=== PATIENT | female | born 2000 | race Native Hawaiian/Other Pacific Islander ===

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

== ENCOUNTER 2018-05-31 11:51 | Emergency (ER) | payer BC ==
[2018-05-31 12:02] VITALS: BP 131/90; PULSE 86; RESP 18; TEMP 97.8
--- NOTE | 2018-05-31 12:58 | ED ---
General Adult HPI - General Chief complaint: Skin/Abscess/Foreign Body Stated complaint: skin problem on face Time Seen by Provider: 05/31/18 12:23 Source: patient, RN notes reviewed Mode of arrival: ambulatory Limitations: no limitations - History of Present Illness Initial comments: Patient is a pleasant 17-year-old female presenting to the emergency department with concern for problems with face. Patient states 1 week ago she slipped getting out of the shower and struck her face on a sink. No loss of consciousness. No neurological problems. Patient did have a cut and her friend 's mother suggested she put regular home superglue on it. She did do this. Patient has had redness for the past several days. Redness does not seem to be worsening. Patient states there is also some irritation. Patient states at times she does get some mild purulent discharge. No pounds with vision or moving her eyes. Patient is unclear how much of the superglue are still on or has come off. Tetanus immunization is up-to-date. - Related Data Home Medications Medication Instructions Recorded Confirmed Divalproex [Depakote] 500 mg PO BID 05/31/18 05/31/18 Gabapentin 600 mg PO TID 05/31/18 05/31/18 HYDROcodone/APAP 5-325MG [[place]us[place] 1 tab PO TID PRN 05/31/18 05/31/18 5-325] Previous Rx's Medication Instructions Recorded Cephalexin [Keflex] 500 mg PO QID #40 cap 05/31/18 Erythromycin Base/Ethanol 1 applic TOPICAL BID #30 gram 05/31/18 [Erythromycin 2% Gel] predniSONE 20 mg PO BID #6 tab 05/31/18 Allergies Allergy/AdvReac Type Severity Reaction Status Date / Time Sulfa (Sulfonamide Allergy Rash/Hives Verified 05/31/18 12:02 Antibiotics) Review of Systems ROS Statement: Those systems with pertinent positive or pertinent negative responses have been documented in the HPI. ROS Other: All systems not noted in ROS Statement are negative. Constitutional: Denies: fever Eyes: Denies: eye pain, eye discharge, vision change ENT: Denies: ear pain Respiratory: Denies: cough Cardiovascular: Denies: chest pain Endocrine: Denies: fatigue Gastrointestinal: Denies: abdominal pain Genitourinary: Denies: dysuria Musculoskeletal: Denies: back pain Skin: Reports: as per HPI, rash Neurological: Denies: headache, weakness, confusion Past Medical History Past Medical History: No Reported History History of Any Multi-Drug Resistant Organisms: None Reported Past Surgical History: No Surgical Hx Reported Past Psychological History: No Psychological Hx Reported Smoking Status: Current every day smoker Past Alcohol Use History: None Reported Past Drug Use History: Marijuana General Exam Limitations: no limitations General appearance: alert, in no apparent distress Head exam: Present: other (Right eyebrow with partially retrained superglue on the lateral portion. Surrounding this area there is approximately 3-4 cm of dry erythematous skin with stellate lesions. Trace swelling. No visualized purulent discharge.) Eye exam: Present: PERRL, EOMI. Absent: nystagmus ENT exam: Present: normal oropharynx Neck exam: Present: normal inspection. Absent: tenderness Respiratory exam: Present: normal lung sounds bilaterally Cardiovascular Exam: Present: regular rate, normal rhythm GI/Abdominal exam: Present: soft. Absent: tenderness Extremities exam: Present: normal inspection Neurological exam: Present: alert, oriented X3, CN II-XII intact. Absent: motor sensory deficit Psychiatric exam: Present: normal affect, normal mood Skin exam: Present: rash Course Vital Signs 05/31/18 11:59 Temperature 97.8 F Pulse Rate 86 Respiratory 18 Rate Blood Pressure 131/90 O2 Sat by Pulse 98 Oximetry Medical Decision Making - Medical Decision Making Area appears to be mostly reactive however with history of purulent discharge and associated erythema infection also needs to be considered. Secondary to this patient will be started on antibiotics orally as well as a couple of days of steroids. In addition patient will be placed on antibiotic ointment to help somewhat with infection however also to help with removal of superglue. Patient is specifically made aware of need for reevaluation, especially if symptoms start to get even slightly worse. Disposition Clinical Impression: Cellulitis, Contact dermatitis Disposition: HOME SELF-CARE Condition: Stable Instructions (If sedation given, give patient instructions): Cellulitis (ED), Acute Wounds (ED), Contact Dermatitis (ED) Additional Instructions: Please follow-up primary care physician in the next 2 days for recheck. Please return to emergency department for any eye problems, facial problems, swelling, increased discharge, increased redness, increased discomfort, worsening or change in symptoms or any other concerns. Prescriptions: Cephalexin [Keflex] 500 mg PO QID #40 cap Erythromycin Base/Ethanol [Erythromycin 2% Gel] 1 applic TOPICAL BID #30 gram predniSONE 20 mg PO BID #6 tab Is patient prescribed a controlled substance at d/c from ED?: No Referrals: Saumya Salmeron MD [STAFF PHYSICIAN] - 1-2 days Time of Disposition: 12:55
== END 2018-05-31 13:14 | disposition home or self-care (01) ==
LOC: EC 11:51
DX: L03.211 Cellulitis of face (principal); L25.8 Unspecified contact dermatitis due to other agents; F17.200 Nicotine dependence, unspecified, uncomplicated; Z79.899 Other long term (current) drug therapy; Z88.2 Allergy status to sulfonamides; Y93.E1 Activity, personal bathing and showering
CPT/HCPCS: 99283

== ENCOUNTER 2018-12-31 19:09 | Inpatient (IN) | payer BC, OTHER ==
[2018-12-31] MEDS ORDERED: NALOXONE 0.4 MG/ML 1 ML VIAL IV PRN (20:13)
--- NOTE | 2018-12-31 20:13 | ED ---
General Adult HPI - General Source: patient Mode of arrival: EMS Limitations: no limitations <Luciana Lewis - Last Filed: 12/31/18 20:07> <Alejandro Mckeon - Last Filed: 12/31/18 20:46> - General Chief complaint: Abdominal Pain Stated complaint: ABDOMINAL PAIN Time Seen by Provider: 12/31/18 19:20 - History of Present Illness Initial comments: 18-year-old female patient presents to the emergency department today for evaluation as a transfer from [facility] for evaluation of right- sided abdominal pain, right-sided back pain, UTI. Patient is 17 weeks 5 days with her first child. Patient denies any hematuria, dysuria, urinary frequency, urinary urgency. Denies any nausea or vomiting. Patient denies any abnormal vaginal bleeding or discharge. FHT were 150s at [facility]. She did have fever of 101.2F at [facility]. Patient did receive 1 g of Rocephin and 1 g of Tylenol at the other hospital before for transfer. Patient will be seeing Dr. Manjarrez for care on 01/16/2019. Patient denies any recent rash, shortness breath, chest pain, diarrhea, constipation, numbness, tingling, dizziness, weakness, headache, visual changes, or any other complaints. (Luciana Lewis) - Related Data Home Medications Medication Instructions Recorded Confirmed No Known Home Medications 12/31/18 12/31/18 Allergies Allergy/AdvReac Type Severity Reaction Status Date / Time Sulfa (Sulfonamide Allergy Rash/Hives Verified 05/31/18 12:02 Antibiotics) Review of Systems ROS Other: All systems not noted in ROS Statement are negative. <Luciana Lewis - Last Filed: 12/31/18 20:07> ROS Other: All systems not noted in ROS Statement are negative. <Alejandro Mckeon - Last Filed: 12/31/18 20:46> ROS Statement: Those systems with pertinent positive or pertinent negative responses have been documented in the HPI. Past Medical History Past Medical History: No Reported History History of Any Multi-Drug Resistant Organisms: None Reported Past Surgical History: Orthopedic Surgery Additional Past Surgical History / Comment(s): Back Sx, Arm Sx Past Psychological History: No Psychological Hx Reported Smoking Status: Former smoker Past Alcohol Use History: None Reported Past Drug Use History: Marijuana <Luciana Lewis - Last Filed: 12/31/18 20:07> General Exam Limitations: no limitations General appearance: alert, in no apparent distress, other (This is a well-devel oped, well-nourished adult female patient in no acute distress. Vital signs upon presentation are temperature 98.4F, pulse 107, respirations 20, blood pressure 110/74, pulse ox 98% on room air.) Eye exam: Present: normal appearance, PERRL, EOMI. Absent: scleral icterus, conjunctival injection, periorbital swelling ENT exam: Present: normal exam, normal oropharynx, mucous membranes moist Respiratory exam: Present: normal lung sounds bilaterally. Absent: respiratory distress, wheezes, rales, rhonchi, stridor Cardiovascular Exam: Present: normal rhythm, tachycardia, normal heart sounds. Absent: systolic murmur, diastolic murmur, rubs, gallop, clicks GI/Abdominal exam: Present: soft, tenderness (Right upper quadrant), normal bowel sounds. Absent: distended, guarding, rebound, rigid Back exam: Present: normal inspection, CVA tenderness (R). Absent: CVA tenderness (L) Neurological exam: Present: alert, oriented X3, CN II-XII intact Psychiatric exam: Present: normal affect, normal mood Skin exam: Present: warm, dry, intact, normal color. Absent: rash <Luciana Lewis - Last Filed: 12/31/18 20:07> Course <Alejandro Mckeon - Last Filed: 12/31/18 20:46> Vital Signs 12/31/18 19:14 Temperature 98.4 F Pulse Rate 107 H Respiratory 20 Rate Blood Pressure 110/74 O2 Sat by Pulse 98 Oximetry - Reevaluation(s) Reevaluation #1: 12/31/18 20:46 He supervision: I proceeded [id number] evaluation the patient did discuss [employer] her and her significant other. Patient was transferred from [facility] she had 17 a half weeks and does demonstrate clinical/medical evidence of pyelonephritis. Patient will be admitted I did discuss the case with Dr. Maxwell and with Dr. Hannah (Alejandro Mckeon) Medical Decision Making <Luciana Lewis - Last Filed: 12/31/18 20:07> - Medical Decision Making 18-year-old female patient presents it from [facility] as a transfer for evaluation of pyelonephritis in . Physical examination did reveal right CVA tenderness right-sided abdominal tenderness. Labs reviewed and did reveal leukocytosis at 16,000, urinalysis showed positive nitrates, positive white blood cells. Patient was febrile at their facility at 101.2F. My attending Dr. Mckeon spoke to the on-call [facility] [employer] doctor [place]. Patient will be admitted for IV antibiotics, fluids, and monitoring. She'll be admitted to [facility] with OB on consult. She is agreeable. (Luciana Lewis) Disposition Decision to Admit Reason: Admit from EC Decision Date: 12/31/18 Decision Time: 20:13 <Luciana Lewis - Last Filed: 12/31/18 20:07> <Alejandro Mckeon - Last Filed: 12/31/18 20:46> Clinical Impression: Pyelonephritis during Disposition: ADMITTED IP TO THIS [facility] Condition: Serious
[2018-12-31] MEDS ORDERED: SODIUM CHLORIDE 0.9% 1,000 ML IV SCH (20:15)
[2018-12-31] MEDS ORDERED: PRENATAL VIT-IRON-FOLIC ACID 1 EACH CAP PO STA (20:15)
[2018-12-31 21:06] VITALS: BMI 24.0
[2018-12-31] MEDS: ACETAMINOPHEN TAB 325 MG TAB PO PRN (23:47)
[2019-01-01] MEDS: ACETAMINOPHEN TAB 325 MG TAB PO PRN ×3 (08:39→20:36)
[2019-01-01] MEDS: SODIUM CHLORIDE 0.9% 1,000 ML IV SCH ×2 (11:38→23:08)
[2019-01-01 11:58] LABS: Basophils # (A) 0.1 k/uL (0-0.2); Basophils % (A) 0 %; Eosinophils # (A) 0.1 k/uL (0-0.7); Eosinophils % (A) 0 %; HCT 35.3 % (34.0-46.0); HGB 12.1 gm/dL (11.4-16.0); Lymphocytes # (A) 0.9 k/uL (1.0-4.8); Lymphocytes % (A) 6 %; MCH 29.6 pg (25.0-35.0); MCHC 34.1 g/dL (31.0-37.0); MCV 86.6 fL (80.0-100.0); Mean Platelet Volume 7.5; Monocytes # (A) 0.6 k/uL (0-1.0); Monocytes % (A) 4 %; Neutrophils # (A) 13.5 k/uL (1.3-7.7); Neutrophils % (A) 89 %; Platelet Count 264 k/uL (150-450); RBC 4.08 m/uL (3.80-5.40); RDW 14.5 % (11.5-15.5); WBC 15.2 k/uL (4.0-11.0)
[2019-01-01 12:08] LABS: ALT 11 U/L (9-52); AST 13 U/L (14-36); African American GFR (CKD) >90 (>60 ml/min/1.73 sqM); Albumin 3.1 g/dL (3.5-5.0); Alkaline Phosphatase 60 U/L (38-126); Anion Gap 10 mmol/L; Blood Urea Nitrogen 5 mg/dL (7-17); Calcium 8.7 mg/dL (8.4-10.2); Carbon Dioxide 21 mmol/L (22-30); Chloride 104 mmol/L (98-107); Glucose 84 mg/dL (74-99); Potassium 3.6 mmol/L (3.5-5.1); Sodium 135 mmol/L (137-145); Total Bilirubin 0.3 mg/dL (0.2-1.3); Total Protein 6.1 g/dL (6.3-8.2)
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
--- NOTE | 2019-01-01 13:15 | US ---
EXAMINATION TYPE: US kidneys/renal and bladder DATE OF EXAM: 01/01/2019 COMPARISON: CT July 20 2017 CLINICAL HISTORY: UTI, pyelonephritis. UTI, abdomen pain, patient is 17 weeks , exam done por table. EXAM MEASUREMENTS: Right Kidney: 11.0 x 4.9 x 4.7 cm Left Kidney: 10.7 x 6.0 x 5.3 cm Right Kidney: Inferior pole limited by overlying bowel gas Left Kidney: no hydronephrosis or mass seen Bladder: debris seen within posterior portion of bladder Bilateral Jets seen: yes There is no evidence for hydronephrosis at this point in time. No nephrolithiasis is seen. No stu s are identified. The urinary bladder is not completely anechoic. Bilateral ureteral jets are seen. IMPRESSION: Bladder is not completely anechoic correlates with history of UTI. No hydronephrosis note d bilaterally.
[2019-01-01] MEDS: SENNOSIDES-DOCUSATE SODIUM 1 EACH TAB PO SCH (21:22)
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
[2019-01-02] MEDS: SENNOSIDES-DOCUSATE SODIUM 1 EACH TAB PO SCH ×2 (08:53→19:59)
[2019-01-02] MEDS ORDERED: PRENATAL VIT-IRON-FOLIC ACID 1 EACH CAP PO SCH ×2 (09:00→21:00)
[2019-01-02 09:33] LABS: Basophils % (A) 0 %; Eosinophils # (A) 0.1 k/uL (0-0.7); Eosinophils % (A) 0 %; HCT 35.5 % (34.0-46.0); HGB 11.7 gm/dL (11.4-16.0); Lymphocytes # (A) 1.1 k/uL (1.0-4.8); Lymphocytes % (A) 10 %; MCH 28.8 pg (25.0-35.0); MCV 87.3 fL (80.0-100.0); Monocytes # (A) 0.4 k/uL (0-1.0); Monocytes % (A) 4 %; Neutrophils # (A) 9.1 k/uL (1.3-7.7); Neutrophils % (A) 85 %; Platelet Count 245 k/uL (150-450); RBC 4.06 m/uL (3.80-5.40); RDW 13.6 % (11.5-15.5); WBC 10.8 k/uL (4.0-11.0)
[2019-01-02 09:42] LABS: ALT 16 U/L (9-52); AST 13 U/L (14-36); African American GFR (CKD) >90 (>60 ml/min/1.73 sqM); Albumin 2.8 g/dL (3.5-5.0); Alkaline Phosphatase 57 U/L (38-126); Anion Gap 9 mmol/L; Blood Urea Nitrogen 5 mg/dL (7-17); Calcium 8.3 mg/dL (8.4-10.2); Carbon Dioxide 21 mmol/L (22-30); Chloride 107 mmol/L (98-107); Glucose 120 mg/dL (74-99); Potassium 3.4 mmol/L (3.5-5.1); Sodium 137 mmol/L (137-145); Total Bilirubin 0.3 mg/dL (0.2-1.3); Total Protein 5.6 g/dL (6.3-8.2)
[2019-01-02] MEDS: SODIUM CHLORIDE 0.9% 1,000 ML IV SCH ×2 (10:32→19:45)
[2019-01-02] MEDS: ACETAMINOPHEN TAB 325 MG TAB PO PRN ×2 (10:33→23:27)
--- NOTE | 2019-01-02 12:15 | P.PN ---
Subjective Progress Note Date: 01/02/19 Principal diagnosis: 17 week , pyelonephritis Bina is feeling well and "much better than when she was admittted" labs reviewed and WBC fell from 15-->10, no feer since yesterday am. she denies concerns for me today Objective - Vital Signs Vital signs: Vital Signs Temp 98 F 01/02/19 11:57 Pulse 98 01/02/19 11:57 Resp 18 01/02/19 11:57 BP 108/71 01/02/19 11:57 Pulse Ox 98 01/02/19 11:57 Intake & Output 01/01/19 01/02/19 01/02/19 18:59 06:59 18:59 Intake Total 1560 500 Output Total 2982 933 0065 Balance 285 -350 -1025 Intake: Oral 1560 500 Output: Urine 3052 109 0668 Other: Voiding Method Toilet Toilet Toilet - Constitutional General appearance: Present: average body habitus, cooperative, no acute distress - EENT Eyes: Present: EOMI - Gastrointestinal General gastrointestinal: Present: soft (gravid) - Labs CBC & Chem 7: 01/02/19 08:40 01/02/19 08:40 Labs: Abnormal Lab Results - Last 24 Hours (Table) 01/02/19 01/02/19 Range/Units 08:40 08:40 Neutrophils # 9.1 H (1.3-7.7) k/uL Potassium 3.4 L (3.5-5.1) mmol/L Carbon Dioxide 21 L (22-30) mmol/L BUN 5 L (7-17) mg/dL Creatinine 0.39 L (0.52-1.04) mg/dL Glucose 120 H (74-99) mg/dL Calcium 8.3 L (8.4-10.2) mg/dL AST 13 L (14-36) U/L Total Protein 5.6 L (6.3-8.2) g/dL Albumin 2.8 L (3.5-5.0) g/dL Assessment and Plan (1) Pyelonephritis during Current Visit: Yes Status: Acute Code(s): O23.00 - INFECTIONS OF KIDNEY IN , UNSPECIFIED TRIMESTER SNOMED Code(s): 89766904189034 Plan: improved clinical status, will plan FHTs q shift while admitted. she is to follow up for routine OB check as schedule on 01/16 for anatomy US. she states understanding of the plan, and all questions are answered as far as obstetrical care.
--- NOTE | 2019-01-02 20:35 | P.PN ---
Subjective Progress Note Date: 01/02/19 Principal diagnosis: Acute polynephritis Patient is a 18-year-old female with history of intrauterine 17 weeks and 5 days initially presents to [facility] with complaints of right-sided flank pain and abdominal pain and was found to have acute urinary tr act infection. Patient was initially transferred to [facility] for CAD DRAFTSMAN evaluation. Patient denied any dysuria or hematuria or increased frequency. Patient was febrile on admission with T-max 100.7. Initial T-max was 101.2 at [facility]. Patient was given Rocephin 1 g and 1 g of Tylenol before transfer. Otherwise denied any complaints of chest pain or shortness of breath. No nausea vomiting or diarrhea. No headache or dizziness or lightheadedness. WBC 15.2 01/02/2019 Patient is still complaining of right flank pain area did no dysuria or hematuria. No fever no chills. Leukocytosis resolved. No chest pain or shortness of breath. Urine culture at [facility] showed E. coli. patient will be continued on ceftriaxone. Current medications reviewed. Objective - Vital Signs Vital signs: Vital Signs Temp 98.6 F 01/02/19 20:04 Pulse 103 H 01/02/19 20:04 Resp 16 01/02/19 20:04 BP 108/69 01/02/19 20:04 Pulse Ox 98 01/02/19 20:04 Intake & Output 01/02/19 01/02/19 01/03/19 06:59 18:59 06:59 Intake Total 500 Output Total 850 1825 Balance -350 -1825 Intake: Oral 500 Output: Urine 850 1825 Other: Voiding Method Toilet Toilet # Voids 1 # Bowel Movements 1 - Exam PHYSICAL EXAMINATION: Patient is lying in the bed comfortably, no acute distress, awake alert and oriented.. HEENT: Normocephalic. Neck is supple. Pupils reactive. Nostrils clear. Oral cavity is moist. Ears reveal no drainage. Neck reveals no JVD, carotid bruits, or thyromegaly. CHEST EXAMINATION: Trachea is central. Symmetrical expansion. Lung blandon clear to auscultation and percussion. CARDIAC: Normal S1, S2 with no gallops. No murmurs ABDOMEN: Soft. Bowel sounds normal. No organomegaly. No abdominal bruits. Extremities: reveal no edema. No clubbing or cyanosis Neurologically awake, alert, oriented x3 with well-coordinated movements. No focal deficits noted Skin: No rash or skin lesions. Psychiatric: Coperative. Nonsuicidal Musculoskeletal: No joint swelling or deformity. Normal range of motion. - Labs CBC & Chem 7: 01/02/19 08:40 01/02/19 08:40 Labs: Abnormal Lab Results - Last 24 Hours (Table) 01/02/19 01/02/19 Range/Units 08:40 08:40 Neutrophils # 9.1 H (1.3-7.7) k/uL Potassium 3.4 L (3.5-5.1) mmol/L Carbon Dioxide 21 L (22-30) mmol/L BUN 5 L (7-17) mg/dL Creatinine 0.39 L (0.52-1.04) mg/dL Glucose 120 H (74-99) mg/dL Calcium 8.3 L (8.4-10.2) mg/dL AST 13 L (14-36) U/L Total Protein 5.6 L (6.3-8.2) g/dL Albumin 2.8 L (3.5-5.0) g/dL Assessment and Plan Assessment: Acute pyelonephritis E. coli urinary tract infection as per culture report at [facility]. Sepsis Secondary to above 17 Weeks and 5 Days Intrauterine DVT Prophylaxis with Early Ambulation . Replaced. Plan: Patient Will Be Continued on IV Hydration, Antibiotics in the Form of Ceftriaxone. Continue with Symptomatic Management for Pain and Follow-Up Repeat Labs. CAD DRAFTSMAN is following. Further recommendations based on the clinical course. Time with Patient: Greater than 30
[2019-01-03] MEDS: SODIUM CHLORIDE 0.9% 1,000 ML IV SCH ×2 (03:59→04:17)
[2019-01-03] MEDS: SENNOSIDES-DOCUSATE SODIUM 1 EACH TAB PO SCH (08:41)
[2019-01-03] MEDS: ACETAMINOPHEN TAB 325 MG TAB PO PRN (09:16)
[2019-01-03 09:29] VITALS: RESP 16
[2019-01-03 13:19] VITALS: BP 104/64; PULSE 85; TEMP 98.4
--- NOTE | 2019-01-03 22:50 | P.DS ---
Providers Date of admission: 12/31/18 20:13 Expected date of discharge: 01/03/19 Attending physician: Carmen Maxwell MD Consults: 12/31/18 20:14 Consult Physician Routine Consulting Provider: Domenic Hannah Consult Reason/Comments: Pyelonephritis in Do you want consulting provider notified?: Yes Primary care physician: Stated None Hospital Course: Discharge diagnosis Acute pyelonephritis E. coli urinary tract infection as per culture report at [facility]. Sepsis Secondary to above 17 Weeks and 5 Days Intrauterine DVT Prophylaxis with Early Ambulation Hypokalemia. Replaced. Hospital course Patient is a 18-year-old female with history of intrauterine 17 weeks and 5 days initially presents to [facility] with complaints of right-sided flank pain and abdominal pain and was found to have acute urinary tract infection. Patient was initially transferred to [facility] for DATA LIBRARIAN evaluation. Patient denied any dysuria or hematuria or increased frequency. Patient was febrile on admission with T-max 100.7. Initial T-max was 101.2 at [facility]. Patient was given Rocephin 1 g and 1 g of Tylenol before transfer. Otherwise denied any complaints of chest pain or shortness of breath. No nausea vomiting or diarrhea. No headache or dizziness or lightheadedness. WBC 15.2 01/02/2019 Patient is still complaining of right flank pain area did no dysuria or hematuria. No fever no chills. Leukocytosis resolved. No chest pain or shortness of breath. Urine culture at [facility] showed E. coli. patient will be continued on ceftriaxone. 01/03/2019 Patient denied any flank pain or abdominal pain. Tolerating oral diet. Patient has been afebrile. No Leukocytosis. Urine culture showed E. coli. Patient will be continued on Keflex for 6 more days to complete 10 days course of antibiotics. Patient is stable to be discharged home. PHYSICAL EXAMINATION: Patient is lying in the bed comfortably, no acute distress, awake alert and oriented.. HEENT: Normocephalic. Neck is supple. Pupils reactive. Nostrils clear. Oral cavity is moist. Ears reveal no drainage. Neck reveals no JVD, carotid bruits, or thyromegaly. CHEST EXAMINATION: Trachea is central. Symmetrical expansion. Lung blandon clear to auscultation and percussion. CARDIAC: Normal S1, S2 with no gallops. No murmurs ABDOMEN: Soft. Bowel sounds normal. No organomegaly. No abdominal bruits. Extremities: reveal no edema. No clubbing or cyanosis Neurologically awake, alert, oriented x3 with well-coordinated movements. No focal deficits noted Skin: No rash or skin lesions. Psychiatric: Coperative. Nonsuicidal Musculoskeletal: No joint swelling or deformity. Normal range of motion. Vital Signs - 24 hr 01/02/19 01/03/19 01/03/19 23:00 08:38 13:15 Temperature 98.1 F 97.9 F 98.4 F Pulse Rate [ 100 87 85 Pulse Oximetery ] Respiratory 18 16 16 Rate Blood Pressure 105/61 97/61 104/64 [Left Arm] O2 Sat by Pulse 98 99 98 Oximetry Patient Condition at Discharge: Serious Plan - Discharge Summary Discharge Rx Participant: No New Discharge Prescriptions: New Cephalexin [Keflex] 500 mg PO Q8HR 6 Days #18 cap Continue Pnv,Calcium 72/Iron/Folic Acid [ Plus Tablet] 1 tab PO DAILY Acetaminophen Tab [Tylenol] 325 mg PO Q4H PRN PRN Reason: Pain Discharge Medication List Acetaminophen Tab [Tylenol] 325 mg PO Q4H PRN 12/31/18 [History] Pnv,Calcium 72/Iron/Folic Acid [ Plus Tablet] 1 tab PO DAILY 12/31/18 [History] Cephalexin [Keflex] 500 mg PO Q8HR 6 Days #18 cap 01/03/19 [Rx] Follow up Appointment(s)/Referral(s): None,Stated [Primary Care Provider] - 1-2 days (patient is following up with dr. shelton on 01/16/19 at 1pm per patient the appointment is already scheduled. ) Patient Instructions/Handouts: Kidney Infection (DC) Discharge Disposition: HOME SELF-CARE
== END 2019-01-03 15:57 | disposition home or self-care (01) | DRG 831 ==
LOC: EC 19:09 → 6PED 20:13
PROVIDERS: ADMIT Internal Medicine; ATTEND Internal Medicine
DX: O98.812 Other maternal infectious and parasitic diseases complicating pregnancy, second trimester (principal); A41.51 Sepsis due to Escherichia coli [E. coli]; N10 Acute pyelonephritis; Z3A.17 17 weeks gestation of pregnancy; E87.6 Hypokalemia; Z87.891 Personal history of nicotine dependence; Z88.2 Allergy status to sulfonamides
CPT/HCPCS: 76770; 80053; 83605; 85025; 99285

== ENCOUNTER 2019-02-05 16:35 | Outpatient (CLI) | payer OTHER ==
[2019-02-05 17:02] VITALS: BP 111/71; PULSE 131; RESP 16; TEMP 100.8
--- NOTE | 2019-02-25 08:32 | P.MSEPDOC ---
Presenting Problems - Arrival Data Date of Arrival on Unit: 02/05/19 Time of Arrival on Unit: 16:40 Mode of Transport: Ambulatory - Complaint OB-Reason for Admission/Chief Complaint: Other Comment: pt arrived c/o a fever for the last 2 days and c/o abd discomfort upper abd willis left side under breast area near rib cage. pt denies any nausea or vomitting or diarrhea Medical History - Information : 1 Para: 0 Term: 0 : 0 Abortions: Spontaneous or Elective: 0 Number of Living Children: 0 - Gestational Age Gestational Age by EULOGIO (wks/days): 23 Weeks and 3 Days - History Complications: Smoker Review of Systems - Review of Systems Constitutional: Fever Breast: No problems ENT: No problems Cardiovascular: Irregular heartbeat Respiratory: No problems Gastrointestinal: No problems Genitourinary: No problems Musculoskeletal: No problems Neurological: No problems Skin: No problems Vital Signs - Temperature Temperature: 100.8 F Temperature Source: Oral - Pulse Right Brachial Pulse Rate: 131 Pulse Assessment Method: Automatic Cuff - Respirations Respiratory Rate: 16 Oxygen Delivery Method: Room Air O2 Sat by Pulse Oximetry: 97 - Blood Pressure Right Arm Blood Pressure: 111/71 Blood Pressure Mean: 84 Blood Pressure Source: Automatic Cuff Medical Screen Scoring (Pre) - Cervical Exam Dilation: Exam Deferred Effacement: Exam Deferred Membranes: Intact - Uterine Contractions Frequency: N/A Duration: N/A Intensity: N/A - Maternal Vital Signs Maternal Temperature: N/A Maternal Blood Pressure: N/A Signs of Preeclampsia: N/A Maternal Respirations: N/A - Maternal Trauma Maternal Trauma: N/A - Assessment - Baby A Baseline FHR: 175 - Total Score - Baby A Total Score - Baby A: 0 - Total Score - Baby B Total Score - Baby B: 0 - Total Score - Baby C Total Score - Baby C: 0 - Level of Risk - Baby A Level of Risk - Baby A: Low (0-5) - Level of Risk - Baby B Level of Risk - Baby B: Low (0-5) - Level of Risk - Baby C Level of Risk - Baby C: Low (0-5) Medical Screen Scoring (Post) - Post Treatment Level of Risk Post Treatment Level of Risk - Baby A: Low (0-5) Physician Notification (Post) - Physician Notified Physician Notified Date: 02/05/19 Physician Notified Time: 17:00 Spoke With: Dr. Saldana New Order Received: Yes - Notification Comment Comment: pt has been all cleared ob duggan. pt to go to the ER to be further evualted for fever Disposition - Disposition OB Disposition: Transfer to other dept./facility Discharge Date: 02/05/19 Discharge Time: 17:35 I agree with the RN Medical Screening Exam: Yes Risk & Benefit of care provided described in d/c instruction: Yes Diagnosis: RELATED CONDITIONS, UNSPECIFIED, SECOND TRIMESTER
== END 2019-02-05 17:35 | disposition home or self-care (01) ==
LOC: FBPOP 16:35
PROVIDERS: ATTEND Obstetrics & Gynecology
DX: O26.92 Pregnancy related conditions, unspecified, second trimester (principal); O99.332 Smoking (tobacco) complicating pregnancy, second trimester; F17.200 Nicotine dependence, unspecified, uncomplicated; Z3A.23 23 weeks gestation of pregnancy
CPT/HCPCS: 99213

== ENCOUNTER 2019-02-05 17:25 | Inpatient (IN) | payer OTHER ==
[2019-02-05 19:29] LABS: Basophils # (A) 0.2 k/uL (0-0.2); Basophils % (A) 1 %; Eosinophils # (A) 0.1 k/uL (0-0.7); Eosinophils % (A) 0 %; HCT 34.4 % (34.0-46.0); HGB 11.8 gm/dL (11.4-16.0); Lymphocytes # (A) 0.5 k/uL (1.0-4.8); Lymphocytes % (A) 3 %; MCH 29.4 pg (25.0-35.0); MCHC 34.4 g/dL (31.0-37.0); MCV 85.6 fL (80.0-100.0); Mean Platelet Volume 6.9; Monocytes # (A) 0.5 k/uL (0-1.0); Monocytes % (A) 3 %; Neutrophils # (A) 16.5 k/uL (1.3-7.7); Neutrophils % (A) 93 %; Platelet Count 288 k/uL (150-450); RBC 4.02 m/uL (3.80-5.40); RDW 13.3 % (11.5-15.5); WBC 17.9 k/uL (4.0-11.0)
[2019-02-05 19:38] LABS: ALT <6 U/L (9-52); AST 18 U/L (14-36); African American GFR (CKD) >90 (>60 ml/min/1.73 sqM); Albumin 3.1 g/dL (3.5-5.0); Alkaline Phosphatase 88 U/L (38-126); Anion Gap 16 mmol/L; Blood Urea Nitrogen 4 mg/dL (7-17); Calcium 8.6 mg/dL (8.4-10.2); Carbon Dioxide 16 mmol/L (22-30); Chloride 101 mmol/L (98-107); Glucose 150 mg/dL (74-99); Potassium 3.1 mmol/L (3.5-5.1); Sodium 133 mmol/L (137-145); Total Bilirubin 0.4 mg/dL (0.2-1.3); Total Protein 6.5 g/dL (6.3-8.2)
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
[2019-02-05 20:09] LABS: Amorphous Sediment,Urine Few /hpf; Appearance,Urine Cloudy (Clear); Bilirubin,Urine Negative (Negative); Blood,Urine Moderate (Negative); Color,Urine Yellow; Glucose,Urine (UA) Negative (Negative); Hyaline Casts,Urine 12 /lpf (0-2); Ketones,Urine 2+ (Negative); Leukocyte Esterase,Urine Moderate (Negative); Mucus,Urine Many /hpf; Nitrite,Urine Positive (Negative); PH, Urine 5.5 (5.0-8.0); Protein,Urine 2+ (Negative); RBC,Urine 59 /hpf (0-5); Squamous Epithelial Cell,Urine 72 /hpf (0-4)
[2019-02-05] MEDS ORDERED: SODIUM CHLORIDE 0.9% 1,000 ML IV ONE ×2 (20:14→21:10)
[2019-02-05] MEDS: SODIUM CHLORIDE 0.9% 250 ML IV SCH (21:59)
[2019-02-06] MEDS: SODIUM CHLORIDE 0.9% 250 ML IV SCH ×20 (00:04→21:24)
[2019-02-06] MEDS: ACETAMINOPHEN TAB 325 MG TAB PO PRN ×2 (00:14→17:52)
[2019-02-06 00:29] VITALS: BMI 24.8
[2019-02-06] MEDS: SODIUM CHLORIDE 0.9% 1,000 ML IV SCH ×2 (04:46→17:53)
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
[2019-02-07] MEDS: SODIUM CHLORIDE 0.9% 1,000 ML IV SCH ×2 (01:01→07:55)
[2019-02-07 06:57] LABS: Basophils % (A) 0 %; Eosinophils % (A) 0 %; HCT 32.8 % (34.0-46.0); HGB 11.2 gm/dL (11.4-16.0); Lymphocytes # (A) 0.9 k/uL (1.0-4.8); Lymphocytes % (A) 10 %; MCH 29.1 pg (25.0-35.0); MCHC 34.2 g/dL (31.0-37.0); MCV 85.2 fL (80.0-100.0); Mean Platelet Volume 6.3; Monocytes # (A) 0.3 k/uL (0-1.0); Monocytes % (A) 4 %; Neutrophils # (A) 7.6 k/uL (1.3-7.7); Neutrophils % (A) 84 %; Platelet Count 331 k/uL (150-450); RBC 3.85 m/uL (3.80-5.40); RDW 13.1 % (11.5-15.5)
--- NOTE | 2019-02-07 08:12 | P.PN ---
Progress Note - Text Progress Note Date: 02/07/19 18 year old in her 23 week of with UTI. The culture came back with gram neg bacilli. Her wbc count is down to normal. She is feeling better overall but did spike to 100.8 last night. I will keep her on IV antibiotics until she is afebrile for 24 hours. I also would like to make sure the sensitivity comes back so I know we are treating with the correct antibiotic. FHT remain normal. No contractions or bleeding. She has more of an appetite today.
[2019-02-08 04:12] VITALS: PULSE 85
--- NOTE | 2019-02-08 08:12 | P.DS ---
Providers Date of admission: 02/06/19 13:48 Expected date of discharge: 02/08/19 Attending physician: Nelly Desouza Primary care physician: Stated None - Discharge Diagnosis(es) (1) Current Visit: Yes Status: Acute (2) Pyelonephritis during Current Visit: No Status: Acute Hospital Course: Pt presented with fever, elevated white blood cell count and pain in her flank. She is currently in her 23rd week of . She was diagnosed with pyelonephritis and place on IV antibiotics. Blood cultures were negative. Urine culture grew e. coli. she has been on Rocephin and is not afebrile and WBC count is normal. She is feeling a lot better overall. She will be discharged home today with a prescription for Keflex and she will follow up with me next week as scheduled. She was instructed to call if fevers return. Patient Condition at Discharge: Stable Plan - Discharge Summary New Discharge Prescriptions: New Cephalexin [Keflex] 500 mg PO Q6HR 5 Days #20 cap No Action Pnv,Calcium 72/Iron/Folic Acid [ Plus Tablet] 1 tab PO HS Acetaminophen Tab [Tylenol] 325 mg PO Q4H PRN PRN Reason: Pain Discharge Medication List Acetaminophen Tab [Tylenol] 325 mg PO Q4H PRN 12/31/18 [History] Pnv,Calcium 72/Iron/Folic Acid [ Plus Tablet] 1 tab PO HS 12/31/18 [History] Cephalexin [Keflex] 500 mg PO Q6HR 5 Days #20 cap 02/08/19 [Rx] Follow up Appointment(s)/Referral(s): None,Stated [Primary Care Provider] - 1-2 days Nelly Desouza DO [Doctor of Osteopathic Medicine] - 02/13/19 Discharge Disposition: HOME SELF-CARE
[2019-02-08 08:27] VITALS: BP 106/51; RESP 16; TEMP 98
== END 2019-02-08 11:17 | disposition home or self-care (01) | DRG 833 ==
LOC: EC 17:25 → 4FBP 21:09 → OBSVTOIN 02-06 13:48
PROVIDERS: ADMIT Obstetrics & Gynecology; ATTEND Obstetrics & Gynecology
DX: O23.02 Infections of kidney in pregnancy, second trimester (principal); B96.20 Unspecified Escherichia coli [E. coli] as the cause of diseases classified elsewhere; Z3A.23 23 weeks gestation of pregnancy; Z79.899 Other long term (current) drug therapy; Z87.891 Personal history of nicotine dependence; Z87.828 Personal history of other (healed) physical injury and trauma; Z88.2 Allergy status to sulfonamides
CPT/HCPCS: 36415; 80053; 81001; 83605; 83690; 85025; 87040; 87077; 87086; 87186; 87502; 96361; 96365; 99284

== ENCOUNTER 2019-05-25 17:38 | Inpatient (IN) | payer OTHER ==
[2019-05-25] MEDS ORDERED: CARBOPROST TROMETHAMINE 250 MCG/ML 1 ML AMP IM PRN (18:36)
[2019-05-25] MEDS ORDERED: OXYTOCIN 10 UNIT/ML 1 ML VIAL IM PRN (18:36)
[2019-05-25] MEDS ORDERED: TERBUTALINE 1 MG/ML VIAL SQ PRN (18:36)
[2019-05-25] MEDS ORDERED: METHYLERGONOVINE 0.2 MG/ML 1 ML AMP IM PRN (18:36)
[2019-05-25] MEDS ORDERED: LIDOCAINE 0.5% (PF) 5 MG/ML (50 ML SDV) SQ PRN (18:36)
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
[2019-05-25] MEDS ORDERED: LACTATED RINGERS 1,000 ML IV SCH (18:45)
[2019-05-25 19:01] LABS: Basophils # (A) 0.1 k/uL (0-0.2); Basophils % (A) 0 %; Eosinophils # (A) 0.1 k/uL (0-0.7); Eosinophils % (A) 0 %; HCT 42.8 % (34.0-46.0); HGB 13.9 gm/dL (11.4-16.0); Lymphocytes # (A) 1.6 k/uL (1.0-4.8); Lymphocytes % (A) 10 %; MCH 28.4 pg (25.0-35.0); MCHC 32.6 g/dL (31.0-37.0); MCV 87.1 fL (80.0-100.0); Mean Platelet Volume 8.4; Monocytes # (A) 0.4 k/uL (0-1.0); Monocytes % (A) 3 %; Neutrophils # (A) 14.4 k/uL (1.3-7.7); Neutrophils % (A) 86 %; Platelet Count 314 k/uL (150-450); RBC 4.92 m/uL (3.80-5.40); RDW 14.1 % (11.5-15.5); WBC 16.7 k/uL (4.0-11.0)
--- NOTE | 2019-05-25 19:02 | P.PROBDLV ---
Vaginal Delivery Note - . Vaginal Delivery Note: Normal spontaneous vaginal delivery viable male infant Apgars 9 and 10 delivery time is 1846 hrs. Please see dictated H&P for intimate details of this patient's admission. Brief summary this is a 18-year-old 1 para 0 female 39-2/7 weeks gestation admitted to labor and delivery with complaints of contractions since yesterday. 3 cm dilated and then has spontaneous rupture membranes in triage. Patient is moved to around at that time she is 6 cm dilated. Within a very short period of time she is completely dilated begins pushing. Heart tones are category 1. She pushes one time pushes the head over the perineum. Before the mouth and nares are bulb suctioned she pushes the rest of this infant's body. This is a viable male infant Apgars are 9 and 10 delivery time is 1846 hrs. After delivery of the the infant is laid on the mother's abdomen. 's has spontaneous respiration and good cry. After the cord is done pulsating, it is doubly clamped and cut and cord blood is obtained. Placenta is then spontaneously delivered intact. Inspection of the perineum shows some superficial lacerations that did not require any repair. and mother are stable in delivery room.
[2019-05-25] MEDS ORDERED: diphenhydrAMINE 50 MG/ML 1 ML VIAL IVP PRN (19:03)
[2019-05-25] MEDS ORDERED: ACETAMINOPHEN TAB 325 MG TAB PO PRN (19:03)
[2019-05-25] MEDS ORDERED: ZOLPIDEM 5 MG TAB PO PRN (19:03)
[2019-05-25] MEDS ORDERED: HYDROCORTISONE 2.5% RECTAL CREAM 30 GM TUBE RECTAL PRN (19:03)
[2019-05-25] MEDS ORDERED: BISACODYL 10 MG SUPP RECTAL PRN (19:03)
[2019-05-25] MEDS ORDERED: BENZOCAINE/MENTHOL SPRAY 1 GM/SPRAY AEROSOL TOPICAL PRN (19:03)
[2019-05-25] MEDS ORDERED: diphenhydrAMINE 25 MG CAP PO PRN (19:03)
[2019-05-25] MEDS ORDERED: LANOLIN CREAM 5 GM TUBE TOPICAL PRN (19:03)
[2019-05-25] MEDS ORDERED: SIMETHICONE 80 MG CHEWABLE PO PRN (19:03)
[2019-05-25] MEDS ORDERED: WITCH HAZEL 1 EACH MED..PAD TOPICAL PRN (19:03)
[2019-05-25] MEDS ORDERED: OXYTOCIN 20 UNITS/1000 ML NS 1,000 ML IV SCH (19:15)
[2019-05-25] MEDS: SENNOSIDES-DOCUSATE SODIUM 1 EACH TAB PO SCH (23:43)
[2019-05-26] MEDS: SENNOSIDES-DOCUSATE SODIUM 1 EACH TAB PO SCH ×2 (09:13→20:18)
[2019-05-26] MEDS: IBUPROFEN 600 MG TAB PO PRN ×2 (09:14→20:23)
--- NOTE | 2019-05-26 12:51 | P.PNOBGVD ---
Subjective - Subjective Principal diagnosis: Status post normal vaginal delivery day #1 Interval history: Patient seen and examined. Denies nausea, vomiting, chest pain, shortness of breath or any calf pain. Patient reports: Reports appetite normal, Reports voiding normally, Reports pain well controlled, Reports ambulating normally [place]: doing well Objective - Latest Vital Signs Latest vital signs: Vital Signs Temp Pulse Pulse Resp BP Pulse Ox 05/26/19 08:00 98.7 F 80 16 108/64 05/26/19 03:49 98.0 F 89 18 113/72 05/25/19 23:32 98.4 F 99 18 127/72 99 05/25/19 20:54 98.5 F 89 16 124/68 05/25/19 20:24 85 16 132/82 05/25/19 20:00 16 05/25/19 19:54 77 16 114/79 05/25/19 19:39 78 16 119/73 05/25/19 19:24 98.2 F 76 16 120/75 05/25/19 19:09 98.4 F 91 16 127/79 05/25/19 18:27 98.5 F 75 16 125/62 Intake and Output 05/25/19 05/26/19 05/26/19 22:59 06:59 14:59 Intake Total 250 Balance 250 Intake: Oral 250 Other: Voiding Method Toilet # Voids 1 Weight 83.915 kg - Exam Lungs: bilateral: normal Chest: Normal S1, Normal S2 Extremities: Present: normal Abdomen: Present: normal appearance, soft Uterus: Present: normal, firm - Labs Labs: Abnormal Lab Results - Last 24 Hours (Table) 05/25/19 Range/Units 18:25 WBC 16.7 H (4.0-11.0) k/uL Neutrophils # 14.4 H (1.3-7.7) k/uL Assessment and Plan (1) Normal vaginal delivery Current Visit: Yes Status: Acute Code(s): O80 - ENCOUNTER FOR FULL-TERM UNCOMPLICATED DELIVERY SNOMED Code(s): 19457847 Plan: 1. Continue care 2. field technical support consultant
[2019-05-27 08:54] VITALS: BP 104/67; PULSE 94; RESP 16; TEMP 98.3
[2019-05-27] MEDS: SENNOSIDES-DOCUSATE SODIUM 1 EACH TAB PO SCH (08:54)
[2019-05-27] MEDS: IBUPROFEN 600 MG TAB PO PRN (08:55)
--- NOTE | 2019-05-27 11:07 | DS ---
DISCHARGE SUMMARY PRINCIPAL DIAGNOSIS: day 2. Bina is a 18-year-old female who delivered a baby boy on 05/25/2019 through a vaginal delivery. She has done very well and is stable for discharge at this time. Her vital signs are stable and she is afebrile. HEART: Regular. LUNGS: Clear. EXTREMITIES: Without pain. ABDOMEN: Soft. Uterus is firm and lochia is reported to be light. She does have some mild burning when she urinates, but she is encouraged to use her Dermoplast spray. Prescription for Motrin has been provided. Discharge instructions were thoroughly reviewed and all questions were answered for her prior to her discharge. She is stable for discharge at this time and will follow up with Dr. Desouza in 6 weeks. MMODL / IJN: [id number] /
== END 2019-05-27 12:45 | disposition home or self-care (01) | DRG 807 ==
LOC: FBPOP 17:38 → 4FBP 18:01
PROVIDERS: ADMIT Obstetrics & Gynecology; ATTEND Obstetrics & Gynecology
PROC: 10E0XZZ Delivery of Products of Conception, External Approach (ICD-10-PCS; principal; 2019-05-25)
DX: O80 Encounter for full-term uncomplicated delivery (principal); Z37.0 Single live birth; Z3A.39 39 weeks gestation of pregnancy; Z87.820 Personal history of traumatic brain injury; Z87.891 Personal history of nicotine dependence; Z88.2 Allergy status to sulfonamides; Z91.19 Patient's noncompliance with other medical treatment and regimen
CPT/HCPCS: 85025; 86850; 86900; 86901

== ENCOUNTER 2020-05-31 22:37 | Emergency (ER) | payer OTHER ==
[2020-05-31 22:52] VITALS: BP 140/99; PULSE 94; RESP 18; TEMP 98.2
[2020-05-31] MEDS ORDERED: MUPIROCIN 2% OINT 22 GM TUBE TOPICAL STA (23:03)
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
== END 2020-05-31 23:31 | disposition home or self-care (01) ==
LOC: EC 22:37
DX: L01.00 Impetigo, unspecified (principal); F17.200 Nicotine dependence, unspecified, uncomplicated; Z88.0 Allergy status to penicillin
CPT/HCPCS: 99282

== ENCOUNTER 2020-06-27 14:59 | Emergency (ER) | payer OTHER ==
[2020-06-27 15:17] VITALS: BP 120/85; PULSE 83; RESP 18; TEMP 98.1
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
== END 2020-06-27 16:05 | disposition home or self-care (01) ==
LOC: EC 14:59
DX: S09.90XA Unspecified injury of head, initial encounter (principal); F17.200 Nicotine dependence, unspecified, uncomplicated; Z79.899 Other long term (current) drug therapy; Z88.2 Allergy status to sulfonamides; Z87.820 Personal history of traumatic brain injury; W22.8XXA Striking against or struck by other objects, initial encounter; Y92.009 Unspecified place in unspecified non-institutional (private) residence as the place of occurrence of the external cause
CPT/HCPCS: 99283

== ENCOUNTER 2020-08-25 21:54 | Emergency (ER) | payer OTHER ==
[2020-08-25] MEDS ORDERED: SODIUM CHLORIDE 0.9% 1,000 ML IV ONE (22:10)
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
--- NOTE | 2020-08-25 22:30 | XR ---
EXAMINATION TYPE: XR chest 1V portable DATE OF EXAM: 08/25/2020 COMPARISON: 07/04/2013 HISTORY: Altered mental status TECHNIQUE: Single view FINDINGS: Heart and mediastinum are normal. Lungs are clear. Diaphragm is normal. Bony thorax is inta ct. There is fusion surgery at the thoracolumbar junction noted. IMPRESSION: Normal chest. No change.
[2020-08-25 22:44] LABS: Basophils # (A) 0.1 k/uL (0-0.2); Basophils % (A) 1 %; Eosinophils # (A) 0.2 k/uL (0-0.7); Eosinophils % (A) 3 %; HCT 41.5 % (34.0-46.0); HGB 14.2 gm/dL (11.4-16.0); Lymphocytes # (A) 1.8 k/uL (1.0-4.8); Lymphocytes % (A) 27 %; MCH 29.5 pg (25.0-35.0); MCHC 34.3 g/dL (31.0-37.0); MCV 86.1 fL (80.0-100.0); Mean Platelet Volume 7.6; Monocytes # (A) 0.3 k/uL (0-1.0); Monocytes % (A) 4 %; Neutrophils # (A) 4.1 k/uL (1.3-7.7); Neutrophils % (A) 63 %; Platelet Count 251 k/uL (150-450); RBC 4.82 m/uL (3.80-5.40); RDW 12.9 % (11.5-15.5); WBC 6.5 k/uL (3.8-10.6)
[2020-08-25 23:02] LABS: ALT 34 U/L (4-34); African American GFR (CKD) >90 (>60 ml/min/1.73 sqM); Alcohol <10 mg/dL; Anion Gap 11 mmol/L; Blood Urea Nitrogen 14 mg/dL (7-17); Calcium 8.9 mg/dL (8.4-10.2); Carbon Dioxide 25 mmol/L (22-30); Chloride 104 mmol/L (98-107); Glucose 127 mg/dL (74-99); Non-African American GFR(CKD) >90 (>60 ml/min/1.73 sqM); Sodium 140 mmol/L (137-145); Total Bilirubin 0.5 mg/dL (0.2-1.3)
[2020-08-25 23:24] LABS: AST 48 U/L (14-36); Albumin 4.4 g/dL (3.5-5.0); Alkaline Phosphatase 59 U/L (38-126); Potassium 4.2 mmol/L (3.5-5.1); Total Protein 8.1 g/dL (6.3-8.2)
[2020-08-25 23:35] LABS: Appearance,Urine Cloudy (Clear); Bacteria,Urine Moderate /hpf; Bilirubin,Urine Negative (Negative); Blood,Urine Large (Negative); Color,Urine Light Yellow; Glucose,Urine (UA) Negative (Negative); Hyaline Casts,Urine 8 /lpf (0-2); Ketones,Urine Negative (Negative); Leukocyte Esterase,Urine Negative (Negative); Mucus,Urine Rare /hpf; Nitrite,Urine Positive (Negative); PH, Urine 6.5 (5.0-8.0); Protein,Urine Negative (Negative); RBC,Urine 1 /hpf (0-5); Specific Gravity,Urine 1.003 (1.001-1.035); Squamous Epithelial Cell,Urine 3 /hpf (0-4); Urobilinogen,Urine <2.0 mg/dL (<2.0); WBC,Urine 4 /hpf (0-5)
[2020-08-25 23:47] LABS: Amphetamine Screen,Urine Not Detected (NotDetected); Barbiturate Screen,Urine Not Detected (NotDetected); Benzodiazepines Screen,Urine Not Detected (NotDetected); Cocaine Screen,Urine Not Detected (NotDetected); Methadone Screen, Urine Not Detected (NotDetected); Opiate Screen,Urine Detected (NotDetected); Oxycodone Screen, Urine Not Detected (NotDetected); Phencyclidine Screen,Urine Not Detected (NotDetected); Tricyclic Antidepressant,Urine Not Detected (NotDetected); Urn Cannabinoid Scrn Not Detected (NotDetected)
[2020-08-25 23:48] VITALS: RESP 16
[2020-08-25 23:54] LABS: Glucose,Whole Blood 104 mg/dL (75-99)
[2020-08-26 02:52] VITALS: BP 112/62; PULSE 85; TEMP 98
== END 2020-08-26 02:45 | disposition home or self-care (01) ==
LOC: EC 21:54
DX: L30.1 Dyshidrosis [pompholyx] (principal); F17.200 Nicotine dependence, unspecified, uncomplicated; T50.901A Poisoning by unspecified drugs, medicaments and biological substances, accidental (unintentional), initial encounter
CPT/HCPCS: 36415; 93005; 80053; 83605; 84484; 85025; 81001; 81025; 80306; 71045; 99285; 96360; G0480; 80320